=== PATIENT | female | born 1970 | race Caucasian/White ===

== ENCOUNTER 2018-11-19 19:39 | Emergency (ER) | payer BC ==
[2018-11-19 20:00] VITALS: BP 145/92
[2018-11-19] MEDS ORDERED: LIDOCAINE 1% INJ-PF (10 MG/ML) 30 ML SDV INJ ONE (20:23)
--- NOTE | 2018-11-19 20:26 | ER Document Report ---
ED General - General Chief Complaint: Dog Bite Stated Complaint: DOG BITE/RIGHT WRIST, LACERATION Time Seen by Provider: 11/19/18 20:15 Mode of Arrival: Ambulatory Information source: Patient, [facility] Records Notes: 48-year-old female with hypertension presents with a laceration to her right wrist after her mother's dog bit her. Patient reports that the dog is fully vaccinated. She states that his tooth got caught in her shirt which made him anxious and caused him to bite her. Patient denies any decreased range of motion, sensation. She states tetanus is up-to-date. TRAVEL OUTSIDE OF THE [place] IN LAST 30 DAYS: No - HPI Onset: Just prior to arrival Onset/Duration: Sudden Quality of pain: Achy Severity: Mild Associated symptoms: None Exacerbated by: Movement Relieved by: Denies Similar symptoms previously: No Recently seen / treated by doctor: No - Related Data Allergies/Adverse Reactions: Penicillins Allergy (Verified 11/19/18 21:18) tetracycline Allergy (Verified 11/19/18 21:18) Past Medical History - General Information source: Patient, [facility] Records - Social History Smoking Status: Never Smoker Frequency of alcohol use: None Drug Abuse: None Lives with: Spouse/Significant other Family History: Reviewed & Not Pertinent Patient has suicidal ideation: No Patient has homicidal ideation: No - Past Medical History Cardiac Medical History: Reports: Hx Hypertension Review of Systems - Review of Systems Notes: REVIEW OF SYSTEMS: CONSTITUTIONAL : Denies fever, chills, or sweats. Denies recent illness. Denies weight loss, recent hospitalizations. EENT: Denies visual changes, eye pain. Denies sore throat, oral lesions, difficulty swallowing. CARDIOVASCULAR: Denies chest pain. Denies palpitations. Denies lower extremity edema. RESPIRATORY: Denies cough. Denies shortness of breath, wheezing. GASTROINTESTINAL: Denies abdominal pain or distention. Denies nausea, vomiting, or diarrhea. Denies blood in vomitus, stools, or per rectum. Denies black, tarry stools. Denies constipation. GENITOURINARY: Denies difficulty urinating, painful urination, frequency, blood in urine, or vaginal discharge. MUSCULOSKELETAL: Denies back or neck pain or stiffness. Denies joint pain or swelling. SKIN: + Right wrist laceration HEMATOLOGIC : Denies easy bruising or bleeding. LYMPHATIC: Denies swollen glands. NEUROLOGICAL: Denies confusion or altered mental status. Denies loss of consciousness. Denies dizziness or lightheadedness. Denies headache. Denies weakness or paralysis. Denies problems difficulty with ambulation, slurred speech. Denies sensory loss, numbness, or tingling. Denies seizures. PSYCHIATRIC: Denies anxiety or stress. Denies depression, suicidal ideation, or homicidal ideation. Denies visual or auditory hallucinations. Physical Exam - Vital signs Vitals: Temp Pulse Resp BP Pulse Ox 98.5 F 91 16 145/92 H 99 11/19/18 19:58 11/19/18 19:58 11/19/18 19:58 11/19/18 19:58 11/19/18 19:58 - Notes Notes: PHYSICAL EXAMINATION: GENERAL: Well-appearing, well-nourished and in no acute distress. HEAD: Atraumatic, normocephalic. EYES: Pupils equal round and reactive to light, extraocular movements intact, conjunctiva are normal. ENT: Nares patent, oropharynx clear without exudates. Moist mucous membranes. NECK: Normal range of motion, supple without lymphadenopathy LUNGS: Breath sounds clear to auscultation bilaterally and equal. No wheezes rales or rhonchi. HEART: Regular rate and rhythm without murmurs ABDOMEN: Soft, nontender, nondistended abdomen. No guarding, no rebound. No masses appreciated. Female : deferred Musculoskeletal: Normal range of motion, no pitting or edema. No cyanosis. Sensation intact, cap refill less than 2 seconds,. Hand exam Symmetrically palpable radial and ulnar pulses. Cap refill less than 2 seconds on all digits. Intact sensation to light touch of the radial, median and ulnar nerves demonstrated by testing in the dorsal webspace of the thumb the distal palmar aspect of the index finger and lateral surface of the fifth finger. Two- point discrimination intact to 5 mm of discrimination in the affected digit. Intact motor function of the radial median and ulnar nerves demonstrated by strength of extension of the isolated distal joint of the index finger, hand head operator, and spreading of the second through fifth digits. Intact recurrent median nerve as demonstrated by ability to move down fully through opposition, abduction and flexion. No snuffbox tenderness. NEUROLOGICAL: Cranial nerves grossly intact. Normal speech, normal gait. Normal sensory, motor exams PSYCH: Normal mood, normal affect. SKIN: 4 cm linear laceration to the volar aspect of the left wrist. Course - Re-evaluation Re-evalutation: 11/20/18 00:07 48-year-old female presents with a dog bite to her left wrist. Vital signs reviewed upon arrival. Patient does not appear toxic or dehydrated. She is in no acute distress. Exam is significant for 4 cm laceration in the volar aspect of her left wrist at the base of her first metacarpal. No tendon involvement. Wound was thoroughly irrigated with tap water. Tetanus is already updated. 3 loose sutures were placed due to the gaping nature of the wound. Edges left open. Bacitracin and bulky dressing as well as a wrist splint placed. Patient advised to return if she noticed any erythema or purulent discharge from the wound. Advised that sutures should come out in 7-10 days. Patient was evaluated and treated as appropriate for the patient's presenting symptoms and complaint, with consideration of any critical or life threatening conditions that may be associated with their obtained history and exam as noted above. All results were discussed with patient Patient provided the opportunity to ask questions, and express concerns. Patient was educated on treatments based on their presumed diagnosis as noted above. At this time we will discharge the pat ient with return precautions and follow-up recommendations. Verbal discharge instructions given a the bedside. Medication warnings reviewed. Patient is in agreement with this plan and has verbalized understanding of return precautions. After careful consideration I feel that that patient can be safely discharged from the emergency department, they were advised to followup with a primary care physician in 2-3 days. Dictation on this chart was performed using voice recognition software and may result in unintended grammatical, spelling, syntax or errors. - Vital Signs Vital signs: Temp Pulse Resp BP Pulse Ox 98.5 F 91 16 145/92 H 99 11/19/18 19:58 11/19/18 19:58 11/19/18 19:58 11/19/18 19:58 11/19/18 19:58 Procedures - Laceration/Wound Repair Right Wrist Time completed: 20:59 Wound length (cm): 4 Wound's Depth, Shape: Superficial, Linear Laceration pre-procedure: Sterile PPE donned, Shur-Clens applied Anesthetic type: 1% Lidocaine Volume Anesthetic (mLs): 5 Wound explored: Clean Wound Repaired With: Sutures Suture Size/Type: 4:0 Number of Sutures: 3 Deep Layer Suture Size/Type: 4:0 Post-procedure NV exam normal: Yes Complications: No Discharge - Discharge Clinical Impression: Dog bite Qualifiers: Encounter type: initial encounter Qualified Code(s): W54.0XXA - Bitten by dog, initial encounter Wrist laceration Qualifiers: Encounter type: initial encounter Laterality: right Qualified Code(s): S61.511A - Laceration without foreign body of right wrist, initial encounter Hypertension Qualifiers: Hypertension type: unspecified Qualified Code(s): I10 - Essential (primary) hypertension Condition: Good Disposition: HOME, SELF-CARE Instructions: Animal Bites ([facility]), Hand Laceration ([facility]), Laceration Care ([facility]) Additional Instructions: Please keep area clean and dry for 24 hours. Please keep your wrist splint on for 48 hours. If you notice any redness, pus from the site please return immediately. You will have a scar on this area. We did not closely approximate the skin due to increased chance of infection. Follow up with your [id number] hours for further care or return to the ED IMMEDIATELY if symptoms worsen or you have any concerns. If you cannot afford to follow up with your primary care physician a list of low cost clinics have been provided at the end of your discharge papers as well. Most prescribed medications have multiple side effects. The safest thing to do is when filling your prescription speak to your pharmacist regarding possible interactions with your normal home medications and over the counter medications such as Ibuprofen, Tylenol, Benadryl. If you experience any symptoms that cause you discomfort or concern you should discontinue the medication immediately and return to the emergency room or call your primary care physician. Prescriptions: Cephalexin Monohydrate [Keflex 500 mg Capsule] 500 mg PO BID 5 Days #10 capsule Referrals: YASH PARK MD [[facility]] - Follow up as needed
[2018-11-19] MEDS ORDERED: CEPHALEXIN 500 MG CAPSULE PO ONE (20:59)
== END 2018-11-19 21:26 | disposition home or self-care (01) ==
LOC: ER 19:39
DX: S61.511A Laceration without foreign body of right wrist, initial encounter (principal); W54.0XXA Bitten by dog, initial encounter; I10 Essential (primary) hypertension; Z88.0 Allergy status to penicillin
CPT/HCPCS: 99283; 12002; L3908 ×2; J3490